=== PATIENT | female | born 1975 | race Caucasian/White ===

== ENCOUNTER 2022-04-03 08:11 | Outpatient (CLI) | payer OTHER ==
[~2022-04-03 08:11] MED LIST: SYNTHROID50 MCG PO
== END 2022-04-03 08:13 | disposition home or self-care (01) ==
LOC: SONOGRAMA 08:11
PROVIDERS: ATTEND Pathology Anatomic Pathology & Clinical Pathology
DX: R22.42 Localized swelling, mass and lump, left lower limb (principal)